=== PATIENT | female | born 1960 | race Caucasian/White ===

== ENCOUNTER 2023-04-21 11:18 | Outpatient (CLI) | payer BC, SELFPAY | END 2023-04-21 11:19 | disposition home or self-care (01) | PROVIDERS: PCP Family Medicine; Visit Provider Orthopaedic Surgery Sports Medicine | DX: Z01.818 Encounter for other preprocedural examination (principal) | CPT/HCPCS: 36415; 86850; 86900; 86901 ==

== ENCOUNTER 2023-04-23 09:08 | Day surgery (SDC) | payer BC, SELFPAY ==
[2023-04-23] VITALS (26 sets, daily range): BP systolic 92–132; BP diastolic 57–82; PULSE 43–62; RESP 16–20; TEMP 35.7–36.7; O2SAT 94–100; BMI 21.9
[2023-04-23] MEDS: LACTATED RINGERS 1000 ML 1,000 ML 100 ML IV ×2 (09:45→12:13)
[2023-04-23] MEDS: OXYCODONE (CR) 10 MG TAB.ER.12H PO (09:55)
[2023-04-23] MEDS: ACETAMINOPHEN 500 MG TABLET 1000 MG PO ×2 (09:55→20:17)
[2023-04-23] MEDS: SODIUM CHLORIDE 0.9 % (FLUSH) 10 ML SYRINGE IVF (10:01)
--- NOTE | 2023-04-23 10:12 | SUR.PREOP ---
TIME?OUT:?right hip 10:10 PT/RN/MDA?VERIFICATION?OF?SURGICAL?SITE,?PROCEDURE,?AND?CONSENT OBTAINED?PRIOR?TO?INVASIVE?PROCEDURE.
[2023-04-23] MEDS: fentaNYL 100 MCG/2 ML inj IVP (10:15)
[2023-04-23] MEDS: MIDAZOLAM HCL 1 MG/ML inj IVP (10:15)
--- NOTE | 2023-04-23 10:21 | W.PM.NB ---
Nerve Block Nerve Block Time Seen by Provider: 10:20 Date Seen: 04/23/23 Type of block requested by surgeon for post-operative analgesia: PADMAJA/LFCN Side: right Time out performed: Yes Verification of patient name: Yes Verification of date of : Yes Site marking: site marked Name of person performing procedure: Miguel Continuous monitoring Was continuous monitoring of O2 sat, B/P, quality assurance monitor body, recorded every 15 minutes?: Yes Procedure Checklist: sterile prep, needles and gloves Ultrasound guided. Images saved: Yes Medications given in 5ml increments after negative aspiration: Ropivicaine %: 0.5 mL: 30 Needle gauge: 20 Decadron (mg): 10 Precedex (mcg): 25 Patient tolerated procedure well: Yes Additional comments: Needle noted below psoas tendon needle noted adjacent to LFCN Block Charges Block Charge (with Pro Fee): Other Periph Nerve Block Use of Ultrasound Machine for Block: Yes- US Guidance/pain block
--- NOTE | 2023-04-23 10:21 | W.ANESCHARGE ---
Anesthesia Charges Start Date/Time Anesthesia Start Date: 04/23/23 Anesthesia Start Time: 10:42 Stop Date/Time Anesthesia Stop Date: 04/23/23 Anesthesia Stop Time: 13:07
--- NOTE | 2023-04-23 11:15 | CRLHL7_ITS ---
For Patients: As a result of the Century Cures Act, medical imaging exams and procedure reports are released immediately into your electronic medical record. You may view this report before your referring provider. If you have questions, please contact your health care provider. INDICATION: Right hip arthroplasty TECHNIQUE: Intraoperative C-arm fluoroscopy. IMPRESSION: Intraoperative C-arm fluoroscopy was provided. Fluoroscopy time 47 seconds. One image was captured. Dictated by Jovanny Guzman MD @ 04/25/2023 8:14:52 AM (Electronically Signed)
--- NOTE | 2023-04-23 11:26 | SUR.OPER ---
PATIENT QUESTIONS ANSWERED SATISFACTORILY PREOPERATIVELY. PATIENT BROUGHT TO OR #3 PER CART AFTER ADMINISTRATION OF A BLOCK. Patient positioned supine on OR #3 bed. The perioperative team supported arms bilaterally on arm boards. Final approval of positioning by surgeon.
--- NOTE | 2023-04-23 12:55 | W.PM.H&PU ---
History & Physical Update History & Physical Update H&P Reviewed and patient assessed: No changes noted
--- NOTE | 2023-04-23 12:55 | PM.ORPRC ---
Procedure Note Date of procedure: 04/23/23 Procedure: PREOPERATIVE DIAGNOSIS: 1. Right hip osteoarthritis, severe, primary POSTOPERATIVE DIAGNOSIS: 1. Right hip osteoarthritis, severe, primary PROCEDURE: 1. Right total hip arthroplasty-anterior approach 2. 03142 - intraoperative fluoroscopy up to 1 hour. SURGEON: Paul Isaac MD. PEDIATRIC NEUROPSYCHOLOGIST: CHRISTIANO Raymond; Gisel Almanzar PA-C - Of note, a skilled camp assistant was critical for this case to aid in patient positioning, tissue retraction, limb manipulation/positioning, and closure. ANESTHESIA: Spinal anesthetic EBL: 500 mL IMPLANTS: DePuy J&J uncemented total hip [place] cup size 50, hole eliminator, +0 neutral liner Corail stem, standard offset, size 12 +5 mm ceramic 32mm head COMPLICATIONS: None evident INDICATIONS: The patient is a pleasant 63-year-old female who has experienced severe right hip pain and difficulty bearing weight. Workup included x-rays which revealed severe osteoarthrosis in the hip. Given the deformity, the dysfunction, and the pain, as well as the failure of nonoperative management, recommendation was made for surgery. FINDINGS: Full-thickness cartilage loss throughout the femoral head. Calcification of the labrum. Osteophytes around femoral head/neck junction and lateral acetabulum. Small effusion upon entering joint. DESCRIPTION OF PROCEDURE: Following a thorough discussion of risks, benefits, and alternatives consent was obtained and the right hip was marked. The patient was brought to the operating room and placed supine on the operating table. Induction of anesthesia was undertaken. 1.5 g IV vancomycin and 1 g tranexamic acid was administered within 1 hr of incision preoperatively. Proper time-out was performed identifying proper patient, site, procedure. The operative extremity was prepped and draped in the appropriate sterile fashion using ChloraPrep after the patient was positioned on the Cameron table with head in neutral alignment and all bony prominences well padded. C-arm fluoroscopic imaging was utilized to confirm proper pelvis rotation and position, and to get true AP films of both the contralateral left, and the affected right hip. This is for comparison. A longitudinal incision was made starting approximately 1 cm distal to the ASIS, and 3-4 cm lateral. The incision was extended distally aiming toward the lateral border the patella. Sharp incision through skin and bovie cautery through the subcutaneous tissue allowed identification of the TFL fascia. This was sharply divided, and the fascia bluntly released from the muscle fibers as we dissected medial. Upon coming to the medial border, we were able to retract the TFL laterally, and penetrated the deeper fascia and identify the crossing circumflex vessels. These were ligated/cauterized. The rectus was elevated from the capsule, and retractors placed laterally and medially along the femoral neck to help with visualization of the capsule. We then performed an inverted T capsulotomy. The capsule was tagged for later repair. Retractors were placed inside the capsule. The femoral neck was visualized after releasing medially down to the lesser trochanter, along the saddle laterally, and up onto the acetabulum. The femoral neck cut was made in line with our preoperative templating. The head was removed in a single piece, and sized. We turned our attention to acetabular preparation. Initially, the labrum was resected from around the perimeter, the pulvinar was excised, allowing us to visualize the false wall. We started the reaming with a 43 mm reamer. This was medialized down to the true wall. We then enlarged our reamers sequentially up to one size less than the selected cup size. We trialed at the same size and found it to have an excellent fit. The selected cup was then opened, inserted, and impacted in line with the goal of 40? of abduction, and 20-25? of anteversion. This was confirmed on C-arm fluoroscopic imaging to be in the appropriate/goal position. Once the cup was placed we placed a hole eliminator and a liner consistent with preop planning. Attention was turned to the femoral preparation. The limb was extended, externally rotated, and adducted. The posteromedial capsule was released, as retractors were placed allowing excellent access to the proximal femur. Initially a kickboxing instructor was followed by canal finder followed by various broaches. We broached sequentially up to the size noted above, found it to have excellent rotational control, and trialing various heads and necks, revealed that appropriate neck offset, and the above noted head size provided the greatest stability, and roman catholic of length, and offset. C-arm fluoroscopic imaging confirmed position of the stem, as well as leg lengths, which were compared with the pre procedure all fluoroscopic images. Trial implants were removed, the real femoral stem inserted, as was the appropriate head. After reducing, the leg was placed through range of motion and stability was confirmed anterior, posterior, and lateral. A 3 min Betadine soak was then performed, and thorough irrigation with normal saline followed. Closure of the capsule was performed with #1 PDS. Bleeding was confirmed to be controlled at this stage, and the TFL fascia was closed with #0 strata fix. Subcutaneous, and subcuticular closure was performed with 2-0 Vicryl and 4-0 Monocryl, respectively. Dressings were applied, and the patient was awoken from anesthesia and transferred the PACU in stable condition. A skilled camp assistant was critical for this case to aid in patient positioning, tissue retraction, acetabular and proximal femoral exposure, limb manipulation/positioning, dislocation/relocation, patient safety, and closure. PLAN: 1. Weight bear as tolerated operative extremity. 2. 23 hr perioperative antibiotics. 3. Ice. 4. PT/OT consults for ambulation assistance/mobility education. 5. Social work consult for discharge planning. 6. DVT prophylaxis with at SCDs, Lukasz Hose, and Xarelto x5 days followed by aspirin for a total of 1 month..
--- NOTE | 2023-04-23 13:10 | W.ANESCHARGE ---
Anesthesia Charges Start Date/Time Anesthesia Start Date: 04/23/23 Anesthesia Start Time: 10:42 Stop Date/Time Anesthesia Stop Date: 04/23/23 Anesthesia Stop Time: 13:07
--- NOTE | 2023-04-23 13:16 | CRLHL7_ITS ---
For Patients: As a result of the Cures Act, medical imaging exams and procedure reports are released immediately into your electronic medical record. You may view this report before your referring provider. If you have questions, please contact your health care provider. Indication: Right hip arthroplasty Technique: Pelvis and right hip 2 view Findings: Hardware from a right hip arthroplasty is in satisfactory position. Bone alignment is normal. No sign of acute fracture. There are postoperative changes in the soft tissues. Dictated by Jovanny Guzman MD @ 04/25/2023 8:31:47 AM (Electronically Signed)
[2023-04-23] MEDS: HYDROmorphone 0.5 mg/0.5 ml inj IVP ×2 (14:56→17:06)
--- NOTE | 2023-04-23 17:18 | PM.IMCN1 ---
Date of Consult Patient: [facility] Patient Consult date: 04/23/23 Requesting Physician: Orthopedics Primary Care Provider: Effie Riggs MD Consult Narrative Reason for consult: Medical management Narrative: Leona Kothari is a 63 year old female past medical history significant for lumbar degenerative disc disease, osteoarthritis, status post left total hip arthroplasty 06/2021 is POD#0 s/p R KIKI. Patient does complain that she is experiencing more pain than she had with her previous hip surgery wherein she had a block. Otherwise denies headache, dizziness. Denies nausea, vomiting. Tolerating ice chips. There have been no perioperative complications or nursing concerns reported. Estimated total blood loss documented as 500 ml. If this is not a typo (rather 50 mL) patient will need recheck of hemoglobin in the morning (already ordered by Ortho). Not previously on any anticoagulants. Updated and reviewed the active medical problems, past medical history, past surgical history, social history, allergies and medications in our electronic EMR. Review of Systems Narrative: REVIEW OF SYSTEMS: Complete review of systems performed and negative unless otherwise stated in HPI or below. PFSH PFSH Medical History Arthritis ?M19.90 - Unspecified osteoarthritis, unspecified site (ICD-10) C. difficile colitis (~2013) ?A04.72 - Enterocolitis due to Clostridium difficile, not specified as recurrent (ICD-10) Fibromyalgia ?M79.7 - Fibromyalgia (ICD-10) Back fracture (~1981) Renal disease ?N28.9 - Disorder of kidney and ureter, unspecified (ICD-10) Hyperlipidemia ?E78.5 - Hyperlipidemia, unspecified (ICD-10) Surgical History History of left knee surgery (~1978) ?Z98.890 - Other specified postprocedural states (ICD-10) Status post total replacement of left hip (06/27/21) ?Z96.642 - Presence of left artificial hip joint (ICD-10) Family History Mother Diabetes High blood pressure Alzheimers disease Father Diabetes High blood pressure Stroke Sister Diabetes 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 What is your current living situation?: I presently have a place to live Problems where you live: no known problems In the past 12 months, utilities in danger of being shut off: no In past 12 months, lack of transportation kept you from medical appts, meetings, work, or getting things needed for daily living: no In the past 12 mos, have been you worried that your food would run out before you had money to buy more?: never true In the past 12 mos, the food you bought just didn't last and you didn't have money to buy more?: never true Smoking Status: Never smoker Do you use any of these nicotine containing products: None Second hand tobacco smoke exposure: No How often do you have a drink containing alcohol: 2-3 times a week Alcohol type: wine How many standard drinks containing alcohol do you have on a typical day: 1 or 2 AUDIT-C Alcohol total score: 3 Non-prescribed substance use: denies use Caffeine: No How often does anyone, including family, friends and others, physically hurt you: never How often does anyone, including family, friends and others, insult or talk down to you: never How often does anyone, including family, friends and others, threaten you with harm: never How often does anyone, including family, friends and others, scream or curse at you: never Meds Home Medications and Allergies Home Medications Medication Instructions Recorded Confirmed Type acetaminophen 500 mg tablet 500 - 1,000 mg PO Q4-6H PRN 12/28/21 04/23/23 History cholecalciferol (vitamin D3) 125 5,000 unit PO DAILY 12/28/21 04/23/23 History mcg (5,000 unit) tablet cyanocobalamin (vitamin B-12) 500 500 mcg PO DAILY 12/28/21 04/23/23 History mcg tablet multivitamin 1 tab PO QDAY 12/28/21 04/23/23 History omega 6-zjs-qai-fish oil 100 1 cap PO DAILY 01/21/23 04/23/23 History mg-160 mg-1,000 mg capsule (Fish Oil) Allergies Allergy/AdvReac Type Severity Reaction Status Date / Time amoxicillin Allergy Unknown Hives Verified 01/01/22 09:20 cephalexin Allergy Unknown Hives Verified 01/01/22 09:20 clindamycin Allergy Unknown Hives Verified 01/01/22 09:20 nitrofurantoin Allergy Unknown Hives Verified 01/01/22 09:20 sulfamethoxazole Allergy Verified 01/21/23 08:42 [From Sulfamethoxazole-Trimethoprim] trimethoprim Allergy Verified 01/21/23 08:42 [From Sulfamethoxazole-Trimethoprim] Penicillins AdvReac Hives Verified 01/21/23 08:42 Exam Narrative: Exam Narrative: PHYSICAL EXAM General: Pleasant, conversant, NAD HEENT: Normocephalic, atraumatic, sclera white, EOMI, oral mucosa moist Cardiovascular: RRR, S1S2. No pitting edema Pulmonary: CTA bilaterally without rhonchi, rales, expiratory wheezes. No dyspnea Neurological: Alert, answering questions appropriately, cranial nerves intact, no focal findings Extremities: No gross joint deformity or swelling. Postoperative dressing in place, dry. Neurovascularly intact Skin: Warm, dry. Const: Vital Signs, click to edit/add: Vital Signs - 24 hr 04/23/23 09:38 04/23/23 10:15 04/23/23 10:25 Temperature 98.0 F Pulse Rate 55 L 49 L 46 L Respiratory Rate 20 16 16 Blood Pressure 127/82 132/82 112/73 Pulse Oximetry 98 98 98 Oxygen Delivery Me thod Room Air Nasal Cannula Nasal Cannula Oxygen Flow Rate 3 3 04/23/23 13:03 04/23/23 13:08 04/23/23 13:13 Temperature 97.3 F L Pulse Rate 50 L 47 L 45 L Respiratory Rate 16 16 16 Blood Pressure 95/57 L 92/58 L 94/61 Pulse Oximetry 97 98 98 Oxygen Delivery Me thod Room Air Room Air Room Air Oxygen Flow Rate 04/23/23 13:18 04/23/23 13:23 04/23/23 13:28 Temperature Pulse Rate 45 L 49 L 48 L Respiratory Rate 16 16 16 Blood Pressure 96/63 94/68 100/64 Pulse Oximetry 99 99 99 Oxygen Delivery Me thod Room Air Room Air Room Air Oxygen Flow Rate 04/23/23 13:33 04/23/23 13:38 04/23/23 13:43 Temperature Pulse Rate 46 L 44 L 43 L Respiratory Rate 16 16 16 Blood Pressure 96/63 98/64 97/65 Pulse Oximetry 99 99 99 Oxygen Delivery Me thod Room Air Room Air Room Air Oxygen Flow Rate 04/23/23 13:48 04/23/23 13:53 Temperature 97.3 F L Pulse Rate 50 L 44 L Respiratory Rate 16 16 Blood Pressure 93/64 95/67 Pulse Oximetry 99 99 Oxygen Delivery Me thod Room Air Room Air Oxygen Flow Rate 3 Assessment and Plan Assessment and plan (1) Osteoarthritis of right hip: Problem comment: -POD#0, s/p right total hip arthroplasty -perioperative management including pain management per primary team, Orthopedic surgery -PT/OT, DVT PPX -recheck hemoglobin in a.m., documented 500 mL blood loss, preoperative hemoglobin 13.6 Plans to discharge home with her spouse Not currently on any prescription medications. Hospital medicine team will sign off. Please contact our service with any questions or concerns. Status: Chronic
[2023-04-23] MEDS: OXYCODONE 5 MG TABLET PO ×2 (19:08→23:35)
[2023-04-23] MEDS: SENNOSIDES 1 TAB TABLET 2 TAB PO (20:17)
[2023-04-24] MEDS: ACETAMINOPHEN 500 MG TABLET 1000 MG PO ×2 (02:36→08:03)
[2023-04-24] MEDS: HYDROmorphone 0.5 mg/0.5 ml inj IVP ×2 (02:38→04:52)
[2023-04-24] MEDS: OXYCODONE 5 MG TABLET PO ×3 (03:27→10:50)
[2023-04-24 03:34] VITALS: BP 116/74; PULSE 56; RESP 16; TEMP 36.5; O2SAT 96
--- NOTE | 2023-04-24 05:16 | PC.NURSE ---
Patient A&O, VSS and afebrile overnight. Ambulates SBA with gait belt & walker. Voiding without issues and tolerating PO intake; IV SL. Denies any N/V or SOB. Took most of the night to get adequate pain relief, pt had PRN Dilaudid x2 doses and PRN oxycodone 10mg x3 doses. Rated pain up to 8/10 and has come down to 3-4/10 with the pain med regimen. Right anterior hip dressing C/D/I. Pt alternated ice packs on site overnight. TEDs in place. Pt plans on discharging home with her today 04/24.
[2023-04-24 06:45] LABS: Hematocrit 34.7 % (33.0-51.0); Hemoglobin* 11.5 gm/dL (12.0-16.0); Immature Granulocytes Abs Auto 0.02 K/uL (0.00-0.30); Immature Granulocytes Pct Auto 0.3 %; Lymphocytes Percent Auto 9.7 % (20-44); Mean Corpuscular HGB Conc 33 gm/dL (32-36); Mean Corpuscular Hemoglobin 31 pg (26-34); Mean Corpuscular Volume 92 fL (80-100); Monocytes Percent Auto 8.8 % (0.0-11.0); Neutrophils Percent Auto 81.2 % (42.0-72.0); Platelet Count* 185 K/uL (140-440); RDW Coefficient of Variation % 13.4 % (11.5-15.5); Red Blood Count 3.76 m/uL (4.00-5.20); White Blood Count* 7.83 K/uL (4.50-11.00)
[2023-04-24 06:50] LABS: Slide Review Reflex No
[2023-04-24 07:07] LABS: Potassium* 4.3 mmol/L (3.6-5.1); Sodium* 134 mmol/L (135-149)
[2023-04-24 07:10] LABS: Creatinine* 0.6 mg/dL (0.5-1.5); Est. Creatinine Clearance* 61.74; Estimated Glomerular Filt Rate 102 ml/min
[2023-04-24 07:11] LABS: Blood Urea Nitrogen* 15 mg/dL (7-30)
[2023-04-24 08:00] VITALS: BP 101/64; PULSE 58; RESP 16; TEMP 36.4; O2SAT 95
[2023-04-24] MEDS: SENNOSIDES 1 TAB TABLET 2 TAB PO (08:03)
[2023-04-24] MEDS: RIVAROXABAN 10 MG TABLET PO (08:03)
--- NOTE | 2023-04-24 10:54 | PM.ORPN ---
Subjective Subjective Date Seen: 04/24/23 Principal diagnosis: Status postop day 1, right total hip arthroplasty - anterior approach Interval history: Patient reports doing better this morning than last night, as last night she experienced difficult pain management. No acute events over night. Pain managed with scheduled and PRN medications, ice. She did require a couple doses of IV Dilaudid, including oral oxycodone, and acetaminophen for adequate pain management. DVT prophylaxis: Rivaroxaban, bilateral knee high Lukasz stockings, SCDs, walking. Complains of lightheadedness mostly when active, mildly present with rest. She had to stop midway through her PT session due to lightheadedness. Denies any flatus. Denies fevers, chills, aches, N/V, CP, SOB/ARAUJO. Ortho Exam Narrative Exam Narrative: -Patient appears comfortable in bed; no apparent acute distress -Alert and oriented times 3 -Operative hip mild swollen; soft tissues supple; no obvious erythema. No ecchymosis. Warmth appropriate -Surgical dressing clean, dry, intact; no obvious drainage, no erythematous streaking peripheral to the bandage -Bilateral calves soft and supple; no significant swelling, edema, tenderness, erythema, discoloration, warmth, or palpable cords -2+ DP/PT pulses, intact dermatomes and myotomes distally (5/5 strength). Mild numbness about the lateral femoral cutaneous nerve distribution. * still experiencing persistent numbness along the left lateral femoral cutaneous nerve distribution Const Vital Signs, click to edit/add: Vital Signs - 24 hr 04/23/23 13:03 04/23/23 13:08 04/23/23 13:13 Temperature 97.3 F L Pulse Rate 50 L 47 L 45 L Pulse Rate [Left Pulse Oximeter] Respiratory Rate 16 16 16 Blood Pressure 95/57 L 92/58 L 94/61 Blood Pressure [Left Arm] Blood Pressure [Right Arm] Pulse Oximetry 97 98 98 Oxygen Delivery Method Room Air Room Air Room Air Oxygen Flow Rate 04/23/23 13:18 04/23/23 13:23 04/23/23 13:28 Temperature Pulse Rate 45 L 49 L 48 L Pulse Rate [Left Pulse Oximeter] Respiratory Rate 16 16 16 Blood Pressure 96/63 94/68 100/64 Blood Pressure [Left Arm] Blood Pressure [Right Arm] Pulse Oximetry 99 99 99 Oxygen Delivery Method Room Air Room Air Room Air Oxygen Flow Rate 04/23/23 13:33 04/23/23 13:38 04/23/23 13:43 Temperature Pulse Rate 46 L 44 L 43 L Pulse Rate [Left Pulse Oximeter] Respiratory Rate 16 16 16 Blood Pressure 96/63 98/64 97/65 Blood Pressure [Left Arm] Blood Pressure [Right Arm] Pulse Oximetry 99 99 99 Oxygen Delivery Method Room Air Room Air Room Air Oxygen Flow Rate 04/23/23 13:48 04/23/23 13:53 04/23/23 14:10 Temperature 97.3 F L Pulse Rate 50 L 44 L 47 L Pulse Rate [Left Pulse Oximeter] Respiratory Rate 16 16 16 Blood Pressure 93/64 95/67 Blood Pressure [Left Arm] Blood Pressure [Right Arm] 106/68 Pulse Oximetry 99 99 Oxygen Delivery Method Room Air Room Air Oxygen Flow Rate 3 04/23/23 14:15 04/23/23 14:30 04/23/23 14:45 Temperature 96.2 F L 97.3 F L Pulse Rate Pulse Rate [Left Pulse Oximeter] 44 L 43 L 52 L Respiratory Rate 16 16 16 Blood Pressure Blood Pressure [Left Arm] Blood Pressure [Right Arm] 106/74 108/73 105/65 Pulse Oximetry 98 96 97 Oxygen Delivery Method Room Air Room Air Room Air Oxygen Flow Rate 04/23/23 15:00 04/23/23 15:30 04/23/23 16:00 Temperature Pulse Rate Pulse Rate [Left Pulse Oximeter] 46 L 44 L 47 L Respiratory Rate 16 16 16 Blood Pressure Blood Pressure [Left Arm] Blood Pressure [Right Arm] 100/67 95/59 L 96/65 Pulse Oximetry 95 96 97 Oxygen Delivery Method Room Air Room Air Room Air Oxygen Flow Rate 04/23/23 17:00 04/23/23 18:00 04/23/23 19:00 Temperature 97.5 F L 97.8 F 98.1 F Pulse Rate Pulse Rate [Left Pulse Oximeter] 48 L 51 L 62 Respiratory Rate 18 16 16 Blood Pressure Blood Pressure [Left Arm] Blood Pressure [Right Arm] 99/67 101/69 96/63 Pulse Oximetry 95 95 94 Oxygen Delivery Method Room Air Room Air Room Air Oxygen Flow Rate 04/23/23 19:00 04/23/23 20:00 04/23/23 23:00 Temperature 98.1 F 97.7 F Pulse Rate Pulse Rate [Left Pulse Oximeter] 62 57 L 58 L Respiratory Rate 16 16 16 Blood Pressure Blood Pressure [Left Arm] Blood Pressure [Right Arm] 96/63 115/73 Pulse Oximetry 94 95 Oxygen Delivery Method Room Air Room Air Oxygen Flow Rate 04/23/23 23:00 04/24/23 03:34 04/24/23 08:00 Temperature 97.7 F 97.7 F 97.6 F Pulse Rate Pulse Rate [Left Pulse Oximeter] 58 L 56 L 58 L Respiratory Rate 16 16 16 Blood Pressure Blood Pressure [Left Arm] 112/77 116/74 Blood Pressure [Right Arm] 101/64 Pulse Oximetry 96 96 95 Oxygen Delivery Method Room Air Room Air Room Air Oxygen Flow Rate Assessment and Plan Assessment and plan (1) Osteoarthritis of right hip: Problem details: -POD#1, s/p right total hip arthroplasty -perioperative management including pain management per primary team, Orthopedic surgery -PT/OT, DVT PPX -recheck hemoglobin in a.m., documented 500 mL blood loss, preoperative hemoglobin 13.6 Plans to discharge home with her spouse Not currently on any prescription medications. Hospital medicine team will sign off. Please contact our service with any questions or concerns. Status: Chronic Plan - Complete 23 hour perioperative antibiotics. - PT/OT consult for education and assistance. - Social work consult for discharge planning - Prescribed analgesics as needed - DVT prophylaxis: Rivaroxaban, bilateral knee high Lukasz Hose stockings and SCDs - Patient inquires about smoking medical marijuana for pain management postoperatively. Advised her that this can be on her own accord; recommended not combining with oxycodone. - Anticipation is for discharge to home with spouse today, 04/24/2023 if the patient remains medically stable, pain is controlled, and they are safe with mobilization.
== END 2023-04-24 11:40 | disposition home or self-care (01) ==
LOC: OR 09:09 → MEDSURG 09:15
PROVIDERS: PCP Family Medicine; Visit Provider Orthopaedic Surgery Sports Medicine
PROC: (CPT 27130; principal; 2023-04-23 11:15)
DX: M16.11 Unilateral primary osteoarthritis, right hip (principal); G89.18 Other acute postprocedural pain; M51.36 Other intervertebral disc degeneration, lumbar region; R42 Dizziness and giddiness
CPT/HCPCS: 27130; 01214; 36415; 64450; 73501; 73502; 76000; 76942; 82565; 84132; 84295; 84520; 85025; 97110; 97116; 97161; 97165; 97530; 97535; A9270; C1776; J1100; J1170; J2250; J2371; J2405; J2704; J2795; J3010; J3370; J7120

== ENCOUNTER 2023-05-21 09:00 | Outpatient (RCR) | payer BC, SELFPAY ==
--- NOTE | 2023-04-14 12:25 | PT.OPEX ---
PT [place] Outpatient Eval PT [facility] Outpatient Eval Start: 04/14/23 07:46 Freq: Status: Active Protocol: Document 04/14/23 07:47 AMS (Rec: 04/14/23 09:59 AMS [id number]) E-signed By Maki Kay PT Physical Therapy Outpatient Evaluation Insurance Information Recert Due Date 07/08/23 Insurance Name Medicaid,Blue Cross/Blue Shield Medical Diagnosis S/p right KIKI 04/23/23 pre-op and post-op Presence of right artificial hip joint Right hip osteoarthritis Treating Diagnosis Aftercare following joint replacement Muscle weakness Difficulty in walking Right hip pain Referring MD Paul Isaac Subjective Subjective Leona returns today with a new problem of right hip pain. She states her pain has progressively gotten worse and worse in the last 6 months. The pain is of the lateral hip and groin, but is not tender to the touch. Her pain is worse with going upstairs, walking, sitting cross legged. She has noticed a reduced ROM while doing yoga as well. The patient has tried ice, Tylenol/oral NSAIDs, rest, activity modification, home exercise plan with activities provided by physical therapist all with minimal and non- lasting relief for the last 6 months. -Dr. Isaac, , confirmed by patient Patient returns prior to right KIKI scheduled for 04/23/23. She has had the left hip replaced in 06/2021 with same surgeon, so knows what to expect post-operatively. X-ray done of right hip showed severe osteoarthritis near [id number]-woap with subchondral sclerosis. The last two months , the pain has significantly worsened. Worse with stairs ( especially when carrying something), bending, hiking ( loves to do this), lifting, getting in and out of the car, squatting, and standing for longer periods at work. 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 Easing factors include rest and having days off. Please see pre-op note for complete home set up. She will be able to live on the main floor for the first few days and will be available multimedia instructional designer to provide care. Does not have a FWW or cane currently but able to borrow one from [facility] like last time. Sleep is impaired d/t hip as well. Has not been able to exercise d/t pain, but her goal is returning to yoga a few times per week (does this at home). Historically, she has not liked to exercise, but her goal is to be healthier next year than this year. Her and her are recently empty nesters with 6 kids. 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 Reportedly mildly antalgic after being on her feet longer periods. SLS: 10+ seconds L, 10+ seconds R w/ more postural sway. Palpation/joint mobility: Tenderness to palpation over lower lumbar spine/lateral hip as well as R posterior glutes . Functional Test Performed & Score LEFS: 32/64 = 50% Assessment Assessment/Impression Patient is a 63 year old female presenting for pre- operative visit prior to right total hip arthroplasty w/ anterior approach on 04/23/23. PMHx significant for left KIKI in Jun 2021, fibromyalgia, hyperlipidemia, renal disease, and skin cancer. Upon assessment, patient displays decreased hip ROM, decreased proximal hip strength, and intermittently antalgic gait pattern. These impairments lead to difficulty with lifting, stairs, standing for work, squatting, getting in and out of the car, walking, and sleeping. Patient will be seen post operatively to reassess impairments that will be addressed with skilled care. would greatly benefit from skilled PT in order to progress strength, ROM, and ambulation post operatively in order to perform all household and work duties without significant difficulty or discomfort. Primary Functional Limitations ifting, stairs, standing for work, squatting, getting in and out of the car, walking, and sleeping Plan of Care Rehabilitation Potential Good Physical Therapy Goals Goals: After pre-op visit: ? Patient will be independent with HEP. ? Patient will verbalize knowledge of stair navigation and proper sequencing. ? Patient will have knowledge on home adaptations and use of assistive devices post operatively. ? Patient will have knowledge of edema management. ALL [facility] Coordination/Communication With Referral Source Treatment Plan/Direct Interventions Electrical Stimulation,Gait Training,Ice/Cold/ Vasopneumatic,Joint Mobilization,Manual Therapy, Neuromuscular Re-ed,Self-Care/ Home Management,Therapeutic Activities,Therapeutic Exercises Frequency/Duration Frequency/duration: ? 1x visit prior to surgery on 04/23/23. Patient scheduled to start outpatient PT s/p KIKI on 04/30/23. Has HEP to start with pre-operatively . Patient Will Be Discharged From Therapy Completion of LTG(s), Independent w/HEP, Independently Progressing Evaluation Billing Untimed Code Treatment Minutes 15 Complexity Low Certification Information Initial Certification Date 04/14/23 Ending Certification Date 07/08/23 Provider Signature Shows Agreement With POC & Medical Necessity Physician Signature & Date Requested Please Sign/Date Here Physician Comment/Change : Physician NPI Number #
== END 2023-08-15 15:50 | disposition home or self-care (01) ==
PROVIDERS: PCP Family Medicine; Visit Provider Orthopaedic Surgery Sports Medicine
DX: M16.11 Unilateral primary osteoarthritis, right hip (principal); Z96.641 Presence of right artificial hip joint; Z47.1 Aftercare following joint replacement surgery; M62.81 Muscle weakness (generalized); R26.2 Difficulty in walking, not elsewhere classified; M25.551 Pain in right hip; Z51.89 Encounter for other specified aftercare
CPT/HCPCS: 97110; 97116; 97161; 97164

== ENCOUNTER 2023-06-23 14:08 | Emergency (ER) | payer MEDICAID, OTHER, SELFPAY ==
[2023-06-23] VITALS (8 sets, daily range): BP systolic 152; BP diastolic 85; PULSE 55–65; RESP 18; TEMP 36.4; O2SAT 96–98; BMI 23.4
--- NOTE | 2023-06-23 14:22 | CRLHL7_ITS ---
For Patients: As a result of the Century Cures Act, medical imaging exams and procedure reports are released immediately into your electronic medical record. You may view this report before your referring provider. If you have questions, please contact your health care provider. INDICATION: Fall, head trauma TECHNIQUE: CT head without contrast. COMPARISON: None. FINDINGS: CSF spaces: Within normal limits for age. Brain parenchyma: The goldman-white differentiation is normal. No sign of mass, hemorrhage, or midline shift. Skull base and calvarium: The visualized paranasal sinuses and mastoid air cells demonstrate no acute or significant findings. The visualized orbits are grossly unremarkable. No skull fractures. IMPRESSION: Unremarkable noncontrast head CT. Please note that all CT scans at this facility use dose modulation, iterative reconstruction, and/or weight-based dosing when appropriate to reduce radiation dose to as low as reasonably achievable. Dictated by Cl Giraldo MD @ 06/23/2023 3:15:46 PM (Electronically Signed)
--- NOTE | 2023-06-23 14:22 | CRLHL7_ITS ---
For Patients: As a result of the Cures Act, medical imaging exams and procedure reports are released immediately into your electronic medical record. You may view this report before your referring provider. If you have questions, please contact your health care provider. INDICATION: Fall, hit head TECHNIQUE: CT cervical spine without contrast. COMPARISON: None FINDINGS: Vertebrae: Alignment is normal. There are no fractures or suspicious bony lesions. Discs and facet joints: Facet hypertrophy C2-3 without evidence of significant stenosis. Facet hypertrophy C3-4 without evidence of significant stenosis. Facet hypertrophy and mild disc space narrowing with minimal osteophytes at C4-5 causing minimal left foraminal stenosis. Disc space narrowing with facet hypertrophy and posterior osteophytes at C5-6 causing moderate left foraminal stenosis. Facet hypertrophy at C6-7 and C7-T1 without significant stenosis. Extraspinal findings: Biapical pleural parenchymal scarring. IMPRESSION: Multilevel degenerative changes cervical spine without evidence of cervical spine fracture. Please note that all CT scans at this facility use dose modulation, iterative reconstruction, and/or weight-based dosing when appropriate to reduce radiation dose to as low as reasonably achievable. Dictated by Cl Giraldo MD @ 06/23/2023 3:19:33 PM (Electronically Signed)
--- NOTE | 2023-06-23 14:23 | CRLHL7_ITS ---
For Patients: As a result of the Cures Act, medical imaging exams and procedure reports are released immediately into your electronic medical record. You may view this report before your referring provider. If you have questions, please contact your health care provider. Indication: Fall, pain Technique: Three views Comparison: None Findings/Impression: Bones: Linear ossifications near the tip of the lateral malleolus. Differential diagnosis includes ossicles, dystrophic calcification or age-indeterminate avulsion fragments. Joint spaces: Unremarkable. Soft tissues: Lateral soft tissue swelling. Dictated by Cl Giraldo MD @ 06/23/2023 3:24:32 PM (Electronically Signed)
--- NOTE | 2023-06-23 14:23 | CRLHL7_ITS ---
For Patients: As a result of the Century Cures Act, medical imaging exams and procedure reports are released immediately into your electronic medical record. You may view this report before your referring provider. If you have questions, please contact your health care provider. Indication: Fall, pain Technique: Three views Comparison: None Findings/Impression: Bones: Alignment is normal. No fractures or bone lesions. Joint spaces: Joint space narrowing and marginal osteophytes consistent with osteoarthritis at the 1st carpometacarpal joint. Soft tissues: Unremarkable. Dictated by Cl Giraldo MD @ 06/23/2023 3:23:01 PM (Electronically Signed)
--- NOTE | 2023-06-23 15:22 | ED_ITS ---
HPI - General Adult General Chief complaint: Fall/Minor Trauma Stated complaint: Fall, L wrist/ankle injury Time Seen by Provider: 06/23/23 14:22 Source: patient and family Mode of arrival: ambulatory Limitations: no limitations History of Present Illness HPI narrative: Patient is a 63-year-old woman here with her after a fall. She says that they were loading some things into a dumpster, she missed a step and fell. She hit the left side of her head on a wall. Her presumes that she was knocked out as he was 1 flight up from her and she did not cry out when she fell. He notes that she was quickly alert and seemed fine after that. She has not had any vomiting. She has some soreness on the left side of her head but no severe headache. Mentating fine. Has some pain in her left wrist in the ulnar region as well as some pain in her left ankle and actually had gone to urgent care to have that evaluated but was sent here. She is not anticoagulated. Related Data Home Medications Medication Instructions Recorded Confirmed acetaminophen 500 mg tablet 500 - 1,000 mg PO Q4-6H PRN 12/28/21 06/23/23 cholecalciferol (vitamin D3) 125 5,000 unit PO DAILY 12/28/21 06/23/23 mcg (5,000 unit) tablet cyanocobalamin (vitamin B-12) 500 500 mcg PO DAILY 12/28/21 06/23/23 mcg tablet multivitamin 1 tab PO QDAY 12/28/21 06/23/23 omega 6-gmf-unx-fish oil 100 1 cap PO DAILY 01/21/23 06/23/23 mg-160 mg-1,000 mg capsule (Fish Oil) Previous Rx's Medication Instructions Recorded acetaminophen 500 mg capsule 500 - 1,000 mg (1 - 2 x 500 mg) PO 04/23/23 Q6H PRN #100 caps sennosides 8.6 mg-docusate sodium 1 - 4 tab-cap (1 - 4 x 8.6-50 mg) 04/23/23 50 mg tablet (Senna-S) PO BID PRN constipation #60 tabs Allergies Allergy/AdvReac Type Severity Reaction Status Date / Time amoxicillin Allergy Unknown Hives Verified 06/23/23 13:31 cephalexin Allergy Unknown Hives Verified 06/23/23 13:31 clindamycin Allergy Unknown Hives Verified 06/23/23 13:31 nitrofurantoin Allergy Unknown Hives Verified 06/23/23 13:31 sulfamethoxazole Allergy Verified 06/23/23 13:31 [From Sulfamethoxazole-Trimethoprim] trimethoprim Allergy Verified 06/23/23 13:31 [From Sulfamethoxazole-Trimethoprim] Penicillins AdvReac Hives Verified 06/23/23 13:31 Review of Systems Status of ROS: Reports: 6 or more systems reviewed and unremarkable except as noted in History and below PFSH PFS Medical History Arthritis ?M19.90 - Unspecified osteoarthritis, unspecified site (ICD-10) C. 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) ?Z96.642 - Presence of left artificial hip joint (ICD-10) Family History Mother Diabetes High blood pressure Alzheimers disease Father Diabetes High blood pressure Stroke Sister Diabetes 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 What is your current living situation?: I presently have a place to live Problems where you live: no known problems In the past 12 months, utilities in danger of being shut off: no In past 12 months, lack of transportation kept you from medical appts, meetings, work, or getting things needed for daily living: no In the past 12 mos, have been you worried that your food would run out before you had money to buy more?: never true In the past 12 mos, the food you bought just didn't last and you didn't have money to buy more?: never true Smoking Status: Never smoker Do you use any of these nicotine containing products: None Second hand tobacco smoke exposure: No How often do you have a drink containing alcohol: 2-3 times a week Alcohol type: wine How many standard drinks containing alcohol do you have on a typical day: 1 or 2 How often do you have six or more drinks on one occasion: Never AUDIT-C Alcohol total score: 3 Non-prescribed substance use: denies use Caffeine: No How often does anyone, including family, friends and others, physically hurt you : never How often does anyone, including family, friends and others, insult or talk down to you: never How often does anyone, including family, friends and others, threaten you with harm: never How often does anyone, including family, friends and others, scream or curse at you: never service: No Exam Narrative: Exam Narrative: Vital signs as noted above. In general, an alert, well-appearing patient. Head: Normocephalic, atraumatic. No hematoma, tenderness, bruising. Eyes: Pupils are equal reactive. Extraocular movements are full. Conjunctivae are normal. ENT: Mucous membranes are moist. No facial trauma. Neck: Supple without lymphadenopathy. Nontender to palpation. Heart: Regular rate and rhythm. No murmur or rub. Lungs: Clear bilaterally. No increased work of breathing, crackles or wheezes. Abdomen: Soft and nontender. No organomegaly. Extremities: Well perfused. No edema. She has some tenderness over the anterior talofibular ligaments on the left, no bony tenderness. She has no bony tenderness or of the wrist, has full range of motion, notes pain with extreme extension of the wrist in the region of the distal ulna. Distal CMS normal. Neurologic: Patient is alert and oriented to person and place. Speech is fluent. Face is symmetric. Moves all extremities equally. Affect: Normal. Skin: Warm and dry. Well perfused. Const: Vital Signs, click to edit/add: Vital Signs - 24 hr 06/23/23 14:22 06/23/23 14:23 01/29/24 14:25 Temperature 97.6 F Pulse Rate 57 L Pulse Rate [Pulse Oximeter] 60 Respiratory Rate 18 Blood Pressure 152/85 H Blood Pressure [Ri ght Upper Arm] 152/85 H Pulse Oximetry 98 96 Oxygen Delivery Me thod Room Air 06/23/23 14:48 06/23/23 14:50 06/23/23 14:54 Temperature Pulse Rate 65 61 60 Pulse Rate [Pulse Oximeter] Respiratory Rate Blood Pressure Blood Pressure [Ri ght Upper Arm] Pulse Oximetry 98 98 96 Oxygen Delivery Me thod 06/23/23 15:00 06/23/23 15:10 Temperature Pulse Rate 55 L 57 L Pulse Rate [Pulse Oximeter] Respiratory Rate Blood Pressure Blood Pressure [Ri ght Upper Arm] Pulse Oximetry 96 97 Oxygen Delivery Me thod Documenting provider has reviewed patient's vital signs: yes Course Course ED Course: TTA was called secondary to loss of consciousness, patient went over for head CT and the cervical spine CT was also ordered prior to my seeing her. By my review, head CT is negative for acute intracranial findings. Cervical spine and head CT both read as negative by Radiology. I did x-rays of the ankle and wrist. I do not see any evidence of fracture aside from a perhaps very tiny avulsion fracture of the distal fibula. Final radiology read as follows: Findings/Impression: Bones: Linear ossifications near the tip of the lateral malleolus. Differential diagnosis includes ossicles, dystrophic calcification or age-indeterminate avulsion fragments. Joint spaces: Unremarkable. Soft tissues: Lateral soft tissue swelling. Regardless, I do not think this requires treatment beyond treating for ankle sprain. Will place in a gel splint, wrist splint. Concussion precautions. Vital Signs Vital signs: Initial Vital Signs Blood Pressure 152/85 H 06/23/23 14:22 Blood Pressure Mean 107 H 06/23/23 14:22 Vital Signs Blood Pressure 152/85 H 06/23/23 14:22 Temperature 97.6 F 06/23/23 14:25 Pulse Rate 57 L 06/23/23 15:10 Respiratory Rate 18 06/23/23 14:25 Blood Pressure 152/85 H 06/23/23 14:25 Pulse Oximetry 97 06/23/23 15:10 Oxygen Delivery Method Room Air 06/23/23 14:25 Discharge Plan Discharge Clinical Impression: Concussion, Left ankle sprain, Left wrist sprain Patient Disposition: Home, Self-Care Condition: Stable Instructions: Ankle Sprain (ED), Concussion (ED), Wrist Sprain (ED) Additional Instructions: Ibuprofen and/or Tylenol, ice. Wrist and ankle splint as needed for the next week or so. Return for acute worsening. Primary care follow-up as needed for persistent symptoms. Prescriptions: No Action Fish Oil 100-160-1,000 mg capsule 1 cap PO DAILY cholecalciferol (vitamin D3) 125 mcg (5,000 unit) tablet 5,000 unit PO DAILY cyanocobalamin (vitamin B-12) 500 mcg tablet 500 mcg PO DAILY multivitamin Tablet 1 tab PO QDAY acetaminophen 500 mg tablet 500 - 1,000 mg PO Q4-6H PRN acetaminophen 500 mg capsule 500 - 1,000 mg PO Q6H MDD 4000mg PRNQty: 100 0RF sennosides-docusate sodium [Senna-S] 8.6-50 mg tablet 1 - 4 tab-cap PO BID PRN (Reason: constipation) Qty: 60 0RF Rx Instructions: Hold medication if experiencing loose stools. Follow Up/Referrals: Effie Riggs MD [Primary Care Provider] - Stand Alone Forms: [employer] Info Instructions
--- NOTE | 2023-06-23 15:42 | ED.NURSE ---
Patient declined hosptial wrist splint and air cast for ankle. She will look for similar braces OTC at a pharmacy instead.
== END 2023-06-23 15:47 | disposition home or self-care (01) ==
PROVIDERS: Emergency Provider Emergency Medicine; PCP Family Medicine
DX: S06.0X1A Concussion with loss of consciousness of 30 minutes or less, initial encounter (principal); W01.0XXA Fall on same level from slipping, tripping and stumbling without subsequent striking against object, initial encounter; S93.402A Sprain of unspecified ligament of left ankle, initial encounter; S63.502A Unspecified sprain of left wrist, initial encounter
CPT/HCPCS: 29125; 70450; 72125; 73110; 73610; 99284; 99291